=== PATIENT | female | born 1935 | race Caucasian/White ===

== ENCOUNTER → 2018-04-27 | Outpatient (CLI) | payer OTHER, MEDICARE | LOC: BHLMT 10:45 | PROVIDERS: ATTEND Internal Medicine Cardiovascular Disease | DX: I48.91 Unspecified atrial fibrillation (principal); I25.10 Atherosclerotic heart disease of native coronary artery without angina pectoris; I10 Essential (primary) hypertension | CPT/HCPCS: 93306-PO ==

== ENCOUNTER → 2018-06-07 | Outpatient (CLI) | payer OTHER, MEDICARE | LOC: BHLMT 10:45 | PROVIDERS: ATTEND Internal Medicine Cardiovascular Disease | DX: I48.0 Paroxysmal atrial fibrillation (principal); I25.10 Atherosclerotic heart disease of native coronary artery without angina pectoris; I10 Essential (primary) hypertension; R06.02 Shortness of breath; I49.5 Sick sinus syndrome; R06.09 Other forms of dyspnea; E78.5 Hyperlipidemia, unspecified; Z79.01 Long term (current) use of anticoagulants; Z95.1 Presence of aortocoronary bypass graft | CPT/HCPCS: 93005-PO ==

== ENCOUNTER 2018-07-14 08:54 | Day surgery (SDC) | payer OTHER, MEDICARE ==
[2018-07-14] MEDS ORDERED: fentaNYL 100 MCG/2 ML INJ IVP ONE (08:56)
[2018-07-14] MEDS ORDERED: ATROPINE SULFATE 1 MG/10 ML SYR IVP ONE (08:56)
[2018-07-14] MEDS ORDERED: NS 500 ML IV ONE (08:56)
[2018-07-14] MEDS ORDERED: MIDAZOLAM 2 MG/2 ML VIAL IVP ONE (08:56)
--- NOTE | 2018-07-14 15:02 | CPEKG ---
Test Reason : OPEN Blood Pressure : / mmHG Vent. Rate : 081 BPM Atrial Rate : 082 BPM P-R Int : 178 ms QRS Dur : 140 ms QT Int : 423 ms P-R-T Axes : 072 -16 000 degrees QTc Int : 491 ms Sinus rhythm IVCD, consider atypical LBBB Confirmed by Donny Gutierrez ([id number]) on 07/14/2018 3:01:34 PM Referred By: Vimal Laura Confirmed By:Donny Gutierrez
--- NOTE | 2018-07-14 15:02 | CPEKG ---
Test Reason : OPEN Blood Pressure : / mmHG Vent. Rate : 068 BPM Atrial Rate : 068 BPM P-R Int : 179 ms QRS Dur : 139 ms QT Int : 423 ms P-R-T Axes : 066 -26 002 degrees QTc Int : 450 ms Sinus rhythm Atrial premature complex Probable left atrial enlargement IVCD, consider atypical LBBB Confirmed by Donny Gutierrez ([id number]) on 07/14/2018 3:01:24 PM Referred By: Vimal Laura Confirmed By:Donny Gutierrez
== END 2018-07-14 10:15 | disposition home or self-care (01) ==
LOC: FCATH 08:54
PROVIDERS: ATTEND Internal Medicine Cardiovascular Disease
DX: I48.0 Paroxysmal atrial fibrillation (principal); I49.5 Sick sinus syndrome; I10 Essential (primary) hypertension; E78.5 Hyperlipidemia, unspecified; I25.10 Atherosclerotic heart disease of native coronary artery without angina pectoris; E03.9 Hypothyroidism, unspecified; Z79.01 Long term (current) use of anticoagulants; Z82.49 Family history of ischemic heart disease and other diseases of the circulatory system; Z95.0 Presence of cardiac pacemaker; Z95.1 Presence of aortocoronary bypass graft; Z66 Do not resuscitate; Z53.09 Procedure and treatment not carried out because of other contraindication